=== PATIENT | female | born 1955 | race Caucasian/White ===

== ENCOUNTER 2024-03-26 11:32 | Outpatient (CLI) | payer MEDICARE, SELFPAY | END 2024-03-26 11:33 | disposition home or self-care (01) | PROVIDERS: PCP Family Medicine; Visit Provider Family Medicine | DX: I10 Essential (primary) hypertension (principal); R73.03 Prediabetes; Z13.220 Encounter for screening for lipoid disorders; Z11.59 Encounter for screening for other viral diseases | CPT/HCPCS: 80053; 80061; 82043; 82570; 86803 ==

== ENCOUNTER 2024-09-14 09:27 | Outpatient (CLI) | payer MEDICARE, SELFPAY | END 2024-09-14 09:28 | disposition home or self-care (01) | LOC: OP CLINIC 09:29 | PROVIDERS: PCP Family Medicine; Visit Provider Surgery | DX: Z53.8 Procedure and treatment not carried out for other reasons (principal) ==

== ENCOUNTER 2024-10-07 13:07 | Outpatient (CLI) | payer MEDICARE, SELFPAY ==
--- NOTE | 2024-10-07 13:00 | CRLHL7_ITS ---
For Patients: As a result of the Century Cures Act, medical imaging exams and procedure reports are released immediately into your electronic medical record. You may view this report before your referring provider. If you have questions, please contact your health care provider. DXA BONE MINERAL DENSITY STUDY Current height (in): 67. Weight (lb): 265. Menopause age: 44. Ethnicity: White. 1. Have you had a previous hip or vertebral fracture? No. 2. Have you had any fractures during your adult life which did not result from significant trauma (e.g., auto accident)? No. 3. Did either of your parents have a hip fracture? No. 4. Do you smoke? No. 5. Have you ever taken Glucocorticoids? No. 6. Do you have rheumatoid arthritis? Yes. 7. Do you have secondary osteoporosis? No. 8. Do you drink 3 or more alcoholic drinks per day? No. 9. Are you being treated for osteoporosis? No. 10. Have you ever taken any of the following medications: Actonel, Evista, Fosamax, Miacalcin, Reclast, Boniva, Forteo, HRT (i.e. estrogen/hormone therapy), Protelos, Prolia, Vitamin D, Calcium, other ??? please specify. ANSWER: No. 11. Do you have any of the following medical conditions: Anorexia or bulimia, asthma or emphysema, end stage renal disease, hyperparathyroidism, any seizure disorders, cancer, inflammatory bowel diseases, hysterectomy, other ??? please specify. ANSWER: No. 12. What was your maximum height (inches)? 67. 13. Do you perform weight bearing exercise regularly? No. 14. Do you regularly consume dairy products? No. 15. Do you drink caffeinated beverages? Yes. 16. At what age did your period start? 15. 17. Are you premenopausal? No. 18. How many full term pregnancies have you had? 2. 19. Have you ever missed your period for more than 6 months in a row (not including or menopause)? No. TECHNIQUE: Bone mineral density study was performed using the [employer]. FINDINGS: The results of the study expressed as bone mineral density (BMD) are as follows: Lumbar spine L1 to L3: BMD: 1.351 g/cm2. T-score: 3.0. Z-score: 5.1. Radius Left 33%: BMD: 0.519 g/cm2. T-score: -2.9. Z-score: 0.9. IMPRESSION: Osteoporosis Kayley Neal M.D. Diagnostic Radiologist [email or web address] DW/Dictated by: Kayley Neal MD @ 10/11/2024 6:35:00 AM (Electronically Signed)
--- NOTE | 2024-10-07 13:40 | CRLHL7_ITS ---
For Patients: As a result of the Century Cures Act, medical imaging exams and procedure reports are released immediately into your electronic medical record. You may view this report before your referring provider. If you have questions, please contact your health care provider. INDICATION: BILATERAL SCREENING MAMMOGRAM, ASYMPTOMATIC 68 Y/O FEMALE COMPARISON: 05/29/13 TECHNIQUE: CC and MLO views were obtained. These mammographic images have been obtained using full-field digital technique. These mammographic images were interpreted with the benefit of computer aided detection and tomosynthesis. BREAST COMPOSITION: The breasts are almost entirely fatty. FINDINGS: No suspicious findings. ASSESSMENT: BI-RADS 2 Benign RECOMMENDATION: Annual screening mammogram. A lay language report of this examination will be provided to the patient. Dictated by: Louis Bauman MD @ 10/14/2024 13:07:30 (Electronically Signed)
--- NOTE | 2024-10-07 14:00 | CRLHL7_ITS ---
For Patients: As a result of the Century Cures Act, medical imaging exams and procedure reports are released immediately into your electronic medical record. You may view this report before your referring provider. If you have questions, please contact your health care provider. INDICATION: Personal history of nicotine dependence TECHNIQUE: Ultrasound aorta with color Doppler analysis. COMPARISON: None FINDINGS: The proximal abdominal aorta measures 2.7 x 2.6 cm, mid aorta measures 2.0 x 2.0 cm, distal aorta measures 1.5 x 1.3 cm, right common iliac artery measures 0.9 x 0.9 cm, and the left common iliac artery measures 1.0 x 1.0 cm. Diffusely increased echogenicity of the liver. IMPRESSION: 1. No evidence of abdominal aortic aneurysm. 2. Moderate hepatic steatosis. Dictated by Emmanuel Wall MD @ 10/07/2024 3:08:48 PM (Electronically Signed)
== END 2024-10-07 13:08 | disposition home or self-care (01) ==
LOC: RAD 13:07
PROVIDERS: PCP Family Medicine; Visit Provider Family Medicine
DX: Z13.6 Encounter for screening for cardiovascular disorders (principal); K76.0 Fatty (change of) liver, not elsewhere classified; Z87.891 Personal history of nicotine dependence; Z12.31 Encounter for screening mammogram for malignant neoplasm of breast; Z13.820 Encounter for screening for osteoporosis; M81.0 Age-related osteoporosis without current pathological fracture; Z78.0 Asymptomatic menopausal state
CPT/HCPCS: 76706; 77063; 77067; 77080

== ENCOUNTER 2024-10-14 09:43 | Outpatient (CLI) | payer MEDICARE, SELFPAY | END 2024-10-14 09:44 | disposition home or self-care (01) | LOC: OP CLINIC 09:44 | PROVIDERS: PCP Family Medicine; Visit Provider Surgery | DX: Z53.8 Procedure and treatment not carried out for other reasons (principal); R19.5 Other fecal abnormalities | CPT/HCPCS: A9270 ==